=== PATIENT | female | born 1965 | race Two or more races ===

== ENCOUNTER 2017-10-13 20:45 | Emergency (ER) | payer OTHER, MEDICAID ==
[~2017-10-13] VITALS: Ht 162.6 cm; Wt 81.8 kg
[2017-10-13] MEDS ORDERED: oxymetazoline 15 ML nasal spray NS ONE (22:50)
[2017-10-13 23:33] VITALS: BP 142/74
== END 2017-10-13 23:35 | disposition home or self-care (01) ==
LOC: EDBD 20:45 → ER 20:45
DX: R04.0 Epistaxis (principal); R42 Dizziness and giddiness; R53.1 Weakness; Z90.710 Acquired absence of both cervix and uterus
CPT/HCPCS: 99283